=== PATIENT | male | born 1970 | race African-American/Black ===

== ENCOUNTER 2022-01-07 22:28 | Emergency (ER) | payer OTHER ==
[~2022-01-07] VITALS: Ht 154.9 cm; Wt 99.8 kg
[2022-01-07 22:57] LABS: PLATELET COUNT 201 K/uL (142-355)
[2022-01-07 23:04] LABS: POTASSIUM 3.5 mmol/L (3.6-5.2)
[2022-01-07 23:19] LABS: PARTIAL THROMBOPLASTIN TIME 24.3 SECONDS (24.5-33.6)
[2022-01-08 01:10] VITALS: BP 149/88
[2022-01-08 01:11] VITALS: TEMP 98.9
== END 2022-01-08 01:11 | disposition home or self-care (01) ==
LOC: ED 22:28
PROVIDERS: Hospitalist
DX: R07.89 Other chest pain (principal); E11.65 Type 2 diabetes mellitus with hyperglycemia; I10 Essential (primary) hypertension
CPT/HCPCS: 36415; 80053; 81002; 82550; 83880; 84484; 85027; 85610; 85730; 93005; 96360; 96374; 99284; J1815